=== PATIENT | female | born 1985 | race Caucasian/White ===

== ENCOUNTER 2016-10-02 22:18 | Emergency (ER) | payer MEDICAID ==
[~2016-10-02] VITALS: Ht 167.6 cm; Wt 122.5 kg
[2016-10-02 22:22] VITALS: TEMP 97.6; Ht 167.6 cm; Wt 122.5 kg
--- OUTSIDE RECORDS SUMMARY | 2016-10-02 22:23 | XMS REPORT | Continuity of Care Document ---
Author Author [facility] Organization [facility] Address Unknown Phone Unavailable Care Team Providers Care Surgical Instrument Repair Specialist Name Role Phone MYRON PHAM DO Primary Care Physician [phone] Insurance Providers Guarantor Ofelia Luna Address [address] [place], [place] [id number] Email DENIED/NO TO PT [facility] Policy Number [id number] Subscriber's Name Ofelia Luna Relationship 18 Self Effective Date 16 Expiration Date 16 Advance Directives Directive Response Recorded Date/Time Resuscitation Documents on File No 03/03/16 7:36am DPOA for Healthcare Only No 03/03/16 7:36am Living Will No 03/03/16 7:36am Problems Active Problems Medical Problem Onset Date Status demise Unknown Unknown Acute Urinary tract infection affecting care of mother in first trimester, antepartum Unknown Acute Past Problems Medical Problem Onset Date Unknown Medications Past Home Medications Medication Directions Ordered Status Escitalopram Oxalate 10 Mg Tablet, 10 Mg Oral Daily 01/05/16 Discontinued Vits W-Ca,Fe,Fa(<1MG) ( Vitamins) 1 Tab Tablet, 1 Tab Oral Daily 06/01/11 Discontinued Social History Social History Problem Response Recorded Date/Time Onset Date Status Reason for Hospitalization Induction for demise 03/03/2016 7:12pm Not Applicable Not Applicable Hx Substance Use No 03/03/2016 7:36am Not Applicable Not Applicable Hx Alcohol Use No 01/05/2016 5:07pm Not Applicable Not Applicable Has the pt used tobacco in the last 12 months No 03/03/2016 7:36am Not Applicable Not Applicable Query Response Start Date Stop Date Smoking Status Former smoker Hospital Discharge Instructions Instructions: Care Instructions: I was in the hospital because (patient own words): to deliver baby Discharge Diet: regular diet Discharge Activity: Pelvic rest until cleared by a medical provider in 4-6 weeks Follow Up Appointments: [facility] in 6 weeks ([place]) Pending Lab / Results: No Pending Lab Patient Instructions: See Discharge instructions Expected Signs/Symptoms: Vaginal spotting or bleeding like a period. Mild abdominal cramping. Notify Physician If: Chest pain, palpitations, fever more than 100.4F, chills, loss of consciousness. During Business Hours:: Please call the physician's office at [phone] After Business Hours:: Please call [phone] and have the skin pass operator page the physician. Pain Management/Treatment: Ibuprofen 600mg orally every 6 hours as needed. Pain Scale Utilized to Educate Patient: 0-10 Pain Scale Wound/Incision Care: None. Condition at time of discharge: Good Plan of Care Discharge Date 03/03/16 7:33pm Disposition 30 STILL A PATIENT Instructions/Education Provided [facility] Prescriptions See Medication Section Care Plan and Goals See Discharge Instructions Section Functional Status No functional status results. Allergies, Adverse Reactions, Alerts Allergen Type Severity Reaction Status Last Updated No Known Drug Allergies Allergy Unknown Active 01/05/16 Immunizations Query Response on File Recorded Date/Time Hx Influenza Vaccination Yes 06/23/11 6:26am Hx Pneumococcal Vaccination No 06/23/11 6:26am Hx Influenza Vaccination Yes 06/23/11 6:26am Vital Signs Acute Vital Signs Vital Response Date/Time Temperature (Fahrenheit) 98.0 deg F (96.8 - 99.1) 03/03/2016 6:45pm Temperature (Calculated Celsius) 36.85228 degrees C (36.0 - 37.3) 03/03/2016 6:45pm Pulse Rate (adult) 72 bpm (60 - 100) 03/03/2016 7:20pm Respiratory Rate 18 breaths/min (10 - 20) 03/03/2016 7:20pm O2 Sat by Pulse Oximetry 100 % (90 - 100) 03/03/2016 7:36am Oxygen Delivery Method Room Air 03/03/2016 7:20pm Blood Pressure 108/60 mm Hg 03/03/2016 7:20pm Blood Pressure Source Automatic Cuff 03/03/2016 7:20pm Height (Feet) 5 feet 03/03/2016 7:36am Height (Inches) 7.75 inches 03/03/2016 5:20pm Weight (Kilograms) 0.160 kg 03/03/2016 5:20pm Body Mass Index (BMI) 41.0 01/05/2016 4:07pm Results Laboratory Results Test Name Result Units Flags Reference Collection Date/Time Result Date/ Time Comments Urine Collection Type VOIDED-NOT CC-MIDSTR 01/05/2016 4:31pm 2015 4:39pm Urine Color YELLOW YELLOW 01/05/2016 4:31pm 01/05/2016 4:39pm Urine Turbidity SL CLOUDY CLEAR 01/05/2016 4:31pm 01/05/2016 4:39pm Urine Specific [place] >=1.030 H 1.015-1.025 01/05/2016 4:31pm 2015 4:39pm Urine pH 6.0 5.0-8.0 01/05/2016 4:31pm 01/05/2016 4:39pm Urine Leukocyte Esterase 1+ A NEGATIVE 01/05/2016 4:31pm 01/05/2016 4: 39pm Urine Nitrite NEGATIVE NEGATIVE 01/05/2016 4:31pm 01/05/2016 4:39pm Urine Protein NEGATIVE NEGATIVE 01/05/2016 4:31pm 01/05/2016 4:39pm Urine Glucose (UA) NEGATIVE NEGATIVE 01/05/2016 4:31pm 01/05/2016 4: 39pm Urine Ketones NEGATIVE NEGATIVE 01/05/2016 4:31pm 01/05/2016 4:39pm Urine Urobilinogen 0.2 EU/DL NORMAL 01/05/2016 4:31pm 01/05/2016 4: 39pm Urine Bilirubin NEGATIVE NEGATIVE 01/05/2016 4:31pm 01/05/2016 4: 39pm Urine Blood TRACE-LYSED A NEGATIVE 01/05/2016 4:31pm 01/05/2016 4: 39pm Urine WBC 10-20 /HPF H 0-5 01/05/2016 4:31pm 01/05/2016 4:54pm Urine RBC 0-1 /HPF 0-3 01/05/2016 4:31pm 01/05/2016 4:54pm Urine Squamous Epithelial Cells 20-50 01/05/2016 4:31pm 01/05/2016 4:54pm Urine Bacteria 2+ H NEGATIVE 01/05/2016 4:31pm 01/05/2016 4:54pm Urine Culture Indicated CULT REFLEXED &SETUP 01/05/2016 4:31pm 02/2016 4:54pm Hemoglobin 12.6 GM/DL 12-16 03/03/2016 6:46pm 03/03/2016 6:52pm Microbiology Results Procedure Source Organism/Result Collection Date/Time Result Date/Time Result Status Urine Culture Urine, Voided-Not Cc-Midstream GRAM POSITIVE DEDRA 01/05/2016 4 :55pm 01/07/2016 2:51pm Final Procedures No known history of procedures. Encounters Encounter Location Arrival/Admit Date Discharge/Depart Date Attending Provider Discharged Inpatient [facility] 03/03/16 6:07am 03/03/16 7:33pm PAULA PA MD Departed Emergency Room [facility] 01/05/16 3:41pm 01/05/16 5: 10pm DONNY RODRIGUEZ MD
--- NOTE | 2016-10-02 22:41 | ERPDOC ---
Departure Disposition Decision Date: October 03, 2016 Disposition Decision Time: 00:17 Disposition: 01 DISCHARGED HOME, SELF-CARE Impression Impression Impression: Primary Impression: Complete miscarriage Severity: Moderate Condition: Stable Seen By: Mid-level only Referrals: MYRON PHAM DO (PCP) ROWENA CHAHAL APRN (Family) Patient Instructions: Miscarriage (ED) Problems/Meds/Labs Reviewed?: Yes Medications reviewed and manag: Yes Additional Instructions: Please continue to monitor the amount of bleeding at home. If you should have further episodes of heavy vaginal bleeding then return to Er for reevaluation. Otherwise follow up with Dr Booker within the next week if any further concerns or in 1 month for recheck. May use Ibuprofen as needed for pain and cramping. Follow up care ordered?: Yes Mental Status: Alert HPI - Female General Chief Complaint: Related Problems Stated Complaint: NA Time Seen by Provider: 22:33 Source: patient Exam Limitations: no limitations HPI - Female Initial Comments She is a female whos LMP was approximately 13 weeks ago. She has been following with Dr Sutton in clinic. At around 11 weeks the fetus no longer had a Occurred At: home Onset: Rapid Duration: 1 hr Severity/Quality: cramping Location: suprapubic Radiation: none Activities at Onset: none Associated Symptoms: abdominal pain (low abdominal cramping) Expected Date of Delivery: Jul 27, 2016 : 5 Para: 3 Allergies: Coded Allergies: No Known Drug Allergies (Verified Allergy, Unknown, 10/03/16) Past History Past Medical History Pt denies signifigant H Surgical History Reproductive/: D&C Family History Family History: Negative Vaccines Hx Influenza Vaccination: Yes Hx Pneumococcal Vaccination: No Social History Smoking Status: Never smoker Substance Use Type: does not use Alcohol Intake: none Marital Status: Sexuality: male partner Household Members: spouse, children Number of Children: 3 Review of Systems Constitutional Constitutional: DENIES: chills, dizziness, fatigue, fever, weakness Cardiovascular Cardiac: DENIES: chest pain Rhythm/Rate: DENIES: irregular beat, palpitations Pulmonary Respiratory: DENIES: cough, dyspnea, sputum GI Upper Abdomen: DENIES: nausea, pain, vomiting Lower Abdomen: pain, DENIES: constipation, diarrhea General: DENIES: discharge, dysuria, frequency, urgency : (5), para (3) Neurological General: DENIES: numbness, tingling Physical Exam General General Nourishment: well nourished, well developed, appears stated age, no acute distress, adult, obese General Body Habitus: well groomed Vitals and Pain First Documented Vital Signs Date Time Temp Pulse Resp B/P Pulse Ox O2 Delivery O2 Flow Rate FiO2 10/02/16 22:22 97.6 70 16 117/64 97 Room Air Weight: Kilograms: Height (feet): 5 Height (inches): 7.75 Triage Pain Scale: RN VS reviewed by Provider: Yes Normal Exams: Neck: Full range of motion, without adenopathy, JVD, bruits or thyromegaly Chest/Resp: Clear all schulz, with good airflow, and symmetry bilaterally CV: Regular rate and rhythm, without murmur or gallop, Pulses 2+ all extremities, capillary refill, <2 seconds all ext., no pedal edema noted Abdomen: Bowel sounds positive, non-distended, no hepatosplenomegaly, masses or bruits noted : Vulva without rashes, or lesions, no exudate or bleeding, noted externally Integumentary: No rashes, hives, or bruising noted Neurologic: Patient is alert, and oriented Psychiatric: Patient exhibits, appropriate attention, emotion and affect Differential Diagnoses Considering: Complete (spont), Missed (spont), Threatened AB (spont) Progress Progress Progress Did speak with Dr Sorensen. She did recommend monitoring bleeding in Er for another 30-60 minutes. She did have a gush of blood and did have to get up and change. She states that it was a moderate amount. Did get up to the bathroom to clean up and change and was feeling a little better. She was noted to be A positive according to review [place] [facility] [place] 2345- Patient had increase in vaginal bleeding. Did completely saturate the pad the she had on and the mesh underwear as well. There was a large clot on the chucks pad as well. Had her stand up at bedside to change and she did pass another large clot, this one about the size of a golf ball. Will continue to monitor her bleeding overall. tissue was sent off for gross pathology per Dr Sorensen request. 0020- Did get up and walk around room several times and she does not have any further gushing of blood. She did have some small bleeding this time but nothing compared to previous episodes. I did talk with her about staying in ER for further observation but she does prefer to go home at this time. Will have her monitor her bleeding and return to ER for reevaluation if further episodes of bleeding like previous 2. Otherwise follow up with Dr Booker in clinic this week for further concerns or in 1 month for recheck. MATT STEELE APRN October 02, 2016 22:41
--- NOTE | 2016-10-02 23:10 | NUR ---
BR PT AMBULATES TO BR AT THIS TIME, WHEN PT STANDS A LARGE GUSH OF BLOOD RUNS ONTO THE FLOOR. PT CHANGES HER SANITARY PAD.
--- NOTE | 2016-10-02 23:25 | NUR ---
ROOM PT IS MOVED TO EXAM 4 AT THIS TIME, DUE TO FREQUENT NEED TO CHANGE SANITARY PAD AND AMOUNT OF VAGINAL BLEEDING SO THAT PT HAS ACCESS TO TOILET IN ROOM.
--- NOTE | 2016-10-03 00:10 | NUR ---
PROVIDER AMISHA BAUMANN IN ROOM AND HAS PT AMBULATE AROUND THE ROOM SEVERAL TIMES, PT REPORTS NO VAGINAL BLEEDING WITH ACTIVITY.
[2016-10-03 00:43] VITALS: BP 115/69; PULSE 103; RESP 18; O2SAT 98
--- NOTE | 2016-10-03 00:43 | NUR ---
DEPART PT IS DISCHARGED AT THIS TIME, INSTRUCTIONS ARE REVIEWED AND UNDERSTANDING IS VOICED. PT REPORTS THERE IS NO VAGINAL BLEEDING IN HER SANITARY PAD AT THIS TIME. PT LEAVES AMBULATORY.
[2016-10-03] MEDS ORDERED: LORA10TA62 PO (06:34)
[2016-10-03] MEDS ORDERED: ESCI10TA PO (06:34)
== END 2016-10-03 00:43 | disposition home or self-care (01) ==
LOC: ED 22:18
DX: O03.9 Complete or unspecified spontaneous abortion without complication (principal)

== ENCOUNTER → 2016-10-03 | Outpatient (CLI) | payer MEDICAID ==
[~2016-10-03] MED LIST: ESCI10TA PO; LORA10TA62 PO
[2016-10-03 11:21] LABS: BASOPHILS % (AUTO) 0.3 % (0-2); EOSINOPHILS # (AUTO) 0.1 T/MM3 (0-0.5); HCT - HEMATOCRIT 37.1 % (36-46); HGB - HEMOGLOBIN 12.4 GM/DL (12-16); IMMATURE GRANULOCYTE # (AUTO) 0.01 T/MM3 (0.00-0.03); IMMATURE GRANULOCYTE % (AUTO) 0.1 % (0.0-0.5); LYMPHOCYTES # (AUTO) 1.4 T/MM3 (1-4.8); LYMPHOCYTES % (AUTO) 13.2 % (23-45); MEAN CORPUSCULAR HGB 28.4 UUG (26-34); MEAN CORPUSCULAR HGB CONC(MCHC 33.4 GM/DL (31-37); MEAN CORPUSCULAR VOLUME 85.1 UM3 (80-100); MEAN PLATELET VOLUME 10.4 UM3 (9.4-12.4); MONOCYTES # (AUTO) 0.4 T/MM3 (0-0.8); MONOCYTES % (AUTO) 4.1 % (0-9.0); NEUTROPHILS #(AUTO)-ABSOLUTE 8.4 T/MM3 (1.8-7.7); NEUTROPHILS % (AUTO) 81.3 % (33-66); RED BLOOD COUNT 4.36 M/MM3 (4.00-5.20); WBC - WHITE BLOOD COUNT 10.3 T/MM3 (4.5-11.0)
== END ==
LOC: LAB 10:50
PROVIDERS: ATTEND Obstetrics & Gynecology
DX: O03.9 Complete or unspecified spontaneous abortion without complication (principal)
CPT/HCPCS: 36415; 84702; 85025